=== PATIENT | female | born 1975 | race Caucasian/White ===

== ENCOUNTER 2019-01-12 14:09 | Emergency (ER) | payer MEDICAID ==
[~2019-01-12] VITALS: Ht 167.6 cm; Wt 113.0 kg
[2019-01-12 14:16] VITALS: BP 157/80
[2019-01-12] MEDS ORDERED: BENZ-16 PO (15:15)
== END 2019-01-12 15:35 | disposition home or self-care (01) ==
LOC: ER 14:11
DX: R05 Cough (principal); J02.9 Acute pharyngitis, unspecified; R09.89 Other specified symptoms and signs involving the circulatory and respiratory systems; Z88.0 Allergy status to penicillin; Z88.2 Allergy status to sulfonamides; Z79.899 Other long term (current) drug therapy
CPT/HCPCS: 99283

== ENCOUNTER 2022-05-04 10:54 | Emergency (ER) | payer MEDICAID ==
[~2022-05-04] VITALS: Ht 167.6 cm; Wt 145.4 kg
[2022-05-04 11:18] VITALS: BP 140/95
[2022-05-04] MEDS ORDERED: CLIN300C71 PO (13:14)
[2022-05-04] MEDS ORDERED: HYDR-3972 PO (13:14)
== END 2022-05-04 13:25 | disposition home or self-care (01) ==
LOC: ER 10:55
DX: K04.7 Periapical abscess without sinus (principal); Z88.0 Allergy status to penicillin; Z88.2 Allergy status to sulfonamides
CPT/HCPCS: 99283

== ENCOUNTER 2023-01-16 01:10 | Emergency (ER) | payer MEDICAID ==
[~2023-01-16] VITALS: Ht 167.6 cm; Wt 160.0 kg
[2023-01-16 01:36] VITALS: BP 158/105
[2023-01-16] MEDS ORDERED: ketorolac trometh inj. 60 MG/2 ML VIAL IM ONE (02:05)
== END 2023-01-16 02:19 | disposition home or self-care (01) ==
LOC: ER 01:11
DX: M54.50 Low back pain, unspecified (principal); G89.29 Other chronic pain; Z88.0 Allergy status to penicillin; Z88.2 Allergy status to sulfonamides; Z79.899 Other long term (current) drug therapy
CPT/HCPCS: 96372; 99283; J1885

== ENCOUNTER 2024-01-19 13:45 | Emergency (ER) | payer MEDICAID ==
[~2024-01-19] VITALS: Ht 167.6 cm; Wt 150.0 kg
[2024-01-19 13:58] VITALS: BP 145/95; PULSE 96; RESP 16; TEMP 98; O2SAT 98
[2024-01-19] MEDS ORDERED: NAPR-56 PO (14:28)
[2024-01-19] MEDS ORDERED: CLIN300C71 PO (14:28)
== END 2024-01-19 14:35 | disposition home or self-care (01) ==
LOC: ER 13:45
DX: K04.7 Periapical abscess without sinus (principal); Z88.0 Allergy status to penicillin; Z88.2 Allergy status to sulfonamides
CPT/HCPCS: 99283

== ENCOUNTER 2024-02-21 21:11 | Emergency (ER) | payer MEDICAID ==
[~2024-02-21] VITALS: Ht 167.6 cm; Wt 154.0 kg
[2024-02-21 21:33] VITALS: BP 132/99; PULSE 88; RESP 20; TEMP 98; O2SAT 98
[2024-02-21] MEDS ORDERED: CLIN-97 PO (21:42)
[2024-02-21] MEDS ORDERED: HYDR-3965 PO (21:56)
== END 2024-02-21 22:09 | disposition home or self-care (01) ==
LOC: ER 21:11
DX: K02.9 Dental caries, unspecified (principal); Z88.0 Allergy status to penicillin; Z88.2 Allergy status to sulfonamides; Z88.8 Allergy status to other drugs, medicaments and biological substances; Z79.2 Long term (current) use of antibiotics
CPT/HCPCS: 99283

== ENCOUNTER 2024-04-23 10:22 | Day surgery (SDC) | payer MEDICAID ==
[~2024-04-23] VITALS: Ht 167.6 cm; Wt 154.4 kg
[~2024-04-23 10:22] MED LIST: CHOL100017 PO; CHOL20003 PO; CYAN-104 PO; FERR325T29 PO; LANS30CA56 PO; LITH150C8 PO; NORT10CA2 PO; VILA40TA2 PO
[2024-04-23 11:26] VITALS: BP 152/94; PULSE 94; TEMP 96.9
[2024-04-23] MEDS ORDERED: fentaNYL/PF 50MCG/1 ML 2ML syringe ONE (11:59)
[2024-04-23] MEDS ORDERED: MIDAZolam 1 MG/ML 5ML VIAL ONE (11:59)
[2024-04-23 13:26] VITALS: BP 146/76; PULSE 90; RESP 16; O2SAT 98
[2024-04-23 13:36] VITALS: BP 139/84; PULSE 83; RESP 17; O2SAT 97
[2024-04-23 13:46] VITALS: BP 131/84; PULSE 79; RESP 16; O2SAT 98
[2024-04-23 13:56] VITALS: BP 151/86; PULSE 83; RESP 16; O2SAT 97
== END 2024-04-23 14:26 | disposition home or self-care (01) ==
LOC: GI LAB 10:22
PROVIDERS: ATTEND Internal Medicine Gastroenterology
DX: Z12.11 Encounter for screening for malignant neoplasm of colon (principal); D12.2 Benign neoplasm of ascending colon; D12.0 Benign neoplasm of cecum; D12.3 Benign neoplasm of transverse colon
CPT/HCPCS: 45380; 45381; 45385; 45390; 99152; 99153; J2250; J3010; J7030; Z7512; A4620; C1889

== ENCOUNTER 2024-09-24 03:23 | Emergency (ER) | payer MEDICAID ==
[~2024-09-24] VITALS: Ht 167.6 cm; Wt 158.0 kg
[2024-09-24] MEDS ORDERED: CLIN-214 PO (03:41)
[2024-09-24 03:48] VITALS: BP 148/98; PULSE 96; RESP 20; TEMP 98.2; O2SAT 96
== END 2024-09-24 03:46 | disposition home or self-care (01) ==
LOC: ER 03:24
DX: K04.7 Periapical abscess without sinus (principal); K02.9 Dental caries, unspecified; Z88.0 Allergy status to penicillin; Z88.2 Allergy status to sulfonamides; Z88.8 Allergy status to other drugs, medicaments and biological substances
CPT/HCPCS: 99283